=== PATIENT | female | born 1945 | race Caucasian/White ===

== ENCOUNTER 2024-03-12 15:42 | Inpatient (IN) ==
[2024-03-12 16:32] LABS: Basophils # (auto) 0.07 K/uL (0.00-0.20); Basophils % (auto) 0.5 %; Eosinophils # (auto) 0.06 K/uL (0.00-0.50); Eosinophils % (auto) 0.4 %; Hematocrit (blood only) 40.2 % (37.0-47.0); Hemoglobin 12.7 g/dl (12.0-16.0); Immature Granulocytes % (auto) 0.7 %; Lymphocytes # (auto) 1.42 K/uL (1.20-3.40); Lymphocytes % (auto) 10.3 %; Mean Corpuscular Hemoglobin 27.3 pg (25.0-34.0); Mean Corpuscular Hgb Conc 31.6 g/dL (32.0-36.0); Mean Corpuscular Volume 86.5 fL (80.0-100.0); Mean Platelet Volume 12.2 fL (9.4-12.4); Monocytes # (auto) 0.85 K/uL (0.11-0.59); Monocytes % (auto) 6.2 %; Neutrophils % (auto) 81.9 %; Platelet Count 186 K/uL (130-400); RDW Coefficient of Variation 15.4 % (11.5-14.5); RDW Standard Deviation 48.8 fL (36.4-46.3); Red Blood Count 4.65 M/uL (4.20-5.40)
[2024-03-12 16:41] LABS: Albumin Globulin Ratio 1.4 (0.9-2); Albumin Level 4.5 gm/dl (3.4-5.0); BUN Creatinine Ratio 13.6 (10-20); Bilirubin,Total 1.1 mg/dl (0.2-1.0); Calcium 9.9 mg/dl (8.6-10.3); Creatinine Clr Calc Pharmacy 55.6 ml/min; Globulin 3.3 gm/dl (2.5-4.0); Magnesium 1.9 mg/dl (1.7-2.4); Potassium 3.9 mmol/L (3.5-5.1); Total Protein 7.8 gm/dl (6.0-8.3)
[2024-03-12 16:48] LABS: Troponin I High Sensitivity 36.5 pg/ml (0-14)
--- NOTE | 2024-03-12 17:00 | XRay Report ---
Clinical History: Dyspnea Technique: A frontal view of the chest was obtained Findings: There are no definite pulmonary infiltrates. The heart size is at the upper limit of normal. No pleural effusion or pneumothorax is seen. There is suspected mild pulmonary vascular congestion No fracture is noted. No foreign body is seen Impression: Borderline cardiomegaly and mild pulmonary vascular congestion Electronically signed by Marques Roberto 03-12-2024 4:59 PM
[2024-03-12] MEDS: OPTIRAY 320 125ml IV ONE (17:27)
[2024-03-12 17:34] LABS: Adenovirus PCR Not Detected (NotDetected); Bordetella parapertussis PCR Not Detected (NotDetected); Bordetella pertussis PCR Not Detected (NotDetected); Chlamydia pneumoniae PCR Not Detected (NotDetected); Coronavirus 229E PCR Not Detected (NotDetected); Coronavirus CoV-2 (COVID19)PCR Not Detected (NotDetected); Coronavirus HKU1 PCR Not Detected (NotDetected); Coronavirus NL63 PCR Not Detected (NotDetected); Coronavirus OC43PCR Not Detected (NotDetected); Human Metapneumovirus PCR Not Detected (NotDetected); Influenza A PCR Not Detected (NotDetected); Influenza B PCR Not Detected (NotDetected); Mycoplasma pneumoniae PCR Not Detected (NotDetected); Parainfluenza Virus 1 PCR Not Detected (NotDetected); Parainfluenza Virus 2 PCR Not Detected (NotDetected); Parainfluenza Virus 3 PCR Not Detected (NotDetected); Parainfluenza Virus 4 PCR Not Detected (NotDetected); Respiratory Syncytial VirusPCR Not Detected (NotDetected); Rhinovirus/Enterovirus PCR Not Detected (NotDetected)
--- NOTE | 2024-03-12 18:18 | CT Scan Report ---
Technique: Axial computed tomography images were obtained of the chest after the administration of intravenous contrast according to the CT angiogram protocol Findings: There is no definite sign of pulmonary embolism. There is mild pulmonary edema. There is a small area of alveolar opacity, likely due to atelectasis. There are small bilateral pleural effusions. There is no pneumothorax. There is no sign of pulmonary fibrosis or other diffuse interstitial process. No endobronchial lesion is seen There are mildly enlarged mediastinal and right hilar lymph nodes, measuring up to 1.5 cm in short axis. The thoracic aorta appears unremarkable with no sign of aneurysm or dissection. There is no pericardial effusion The visualized upper abdomen appears unremarkable. No fracture is seen. No focal osseous lesion is evident Impression: 1. No definite sign of pulmonary embolism 2. Mild pulmonary edema 3. Small bilateral pleural effusions 4. Mild lingular opacity, likely due to atelectasis. A small focus of pneumonia cannot be excluded 5. Mild mediastinal and right hilar adenopathy, nonspecific in nature Electronically signed by Marques Roberto 03-12-2024 6:18 PM
[2024-03-12] MEDS: CEFEPIME 2000MG 2,000 MG/20 ML SYR IV STA (18:43)
[2024-03-12 18:56] LABS: Appearance Urine Clear (Clear); Bilirubin Urine Negative (Negative); Blood Urine Negative (Negative); Color Urine Yellow; Glucose Urine UA Negative (Negative); Ketones Urine Negative (Negative); Leukocyte Esterase Urine Negative (Negative); Nitrite Urine Negative (Negative); Protein Urine Negative (Negative); Specific Gravity Urine 1.028 (1.000-1.030); Urobilinogen Urine Negative (Negative); pH Urine 5.5 (4.5-7.5)
[2024-03-12] MEDS: DOXYCYCLINE HYCLATE 100 MG in DEXTROSE 5% MINI-B 100 ML IV STA (19:27)
--- NOTE | 2024-03-12 19:37 | History & Physical Report ---
Date of Service March 12, 2024 Assessment & Plan (1) Congestive heart failure: Plan: Acute CHF Prominent systolic murmur Recent respiratory infection/community-acquired pneumonia status post Rx Troponin elevation segment illness bronchial asthma, symptoms well-controlled prior to recent respiratory infection hyperlipidemia, on statin Rx prediabetes PCU Diuretic Rx Strict I/Os, daily weights, CHF education Initiate beta-anson TTE, Cardiology consult re: CHF Hold off on additional antibiotic medications. Check hemoglobin A1c DVT prophylaxis per Lovenox subcu Full code Patient daughter requesting updates providers. Ms. Danni Kruse, contact #[phone]. Text document was generated using [employer] voice recognition software. It may contain grammatical or spelling errors. Kindly contact undersigned for clarification of any documentation item in question. History of Present Illness Chief Complaint: Worsening shortness of breath Primary Care Provider: Dr. Jaye Noe from [facility] History obtained from patient, family, and records. Medical history significant for heart murmur, bronchial asthma, hyperlipidemia, prediabetes, gout. Patient is a resident of [facility] who has been in town the last couple of weeks with her to spend holidays with local family. Patient and were to return home 03/16/2024. Patient and her got a cold 2 weeks ago before leaving [place] for the [facility]. Congestion with dry cough symptoms. No chest pain with some SOB. Denies fluid retention. Denies aspiration. Patient consulted local urgent care center 2 weeks ago. Patient prescribed prednisone, Z-Christiano, and inhaler for respiratory illness. No outpatient blood work and x-rays done. Transient improvement in symptoms. Worsening SOB especially on exertion. Denies chest pain. Patient reconsulted urgent care center today. SBP 170s, pulse rate 120s, RR 18, O2 sats 97 room air. Left lobe infiltrate and cardiomegaly on chest x-ray. Neb treatment administered at facility. Cefepime and doxycycline administered at the ER. Patient directed to ER for evaluation. 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 Allergies Allergy/AdvReac Type Severity Reaction Status Date / Time Penicillins Allergy Unknown Verified 03/12/24 16:40 narcotics AdvReac Unknown Uncoded 03/12/24 16:40 Home Medications Medication Instructions Recorded Confirmed Type allopurinol 100 mg tablet 100 mg PO QAM 03/12/24 03/12/24 History cholecalciferol (vitamin D3) 10 10 mcg PO DAILY 03/12/24 03/12/24 History mcg (400 unit) tablet (Vitamin D3) omega 3 350 mg-dha 235 mg-epa 90 1 cap PO DAILY 03/12/24 03/12/24 History mg-fish oil 597 mg capsule,delay rel ([place]-3) rosuvastatin 5 mg tablet 5 mg PO HS 03/12/24 03/12/24 History Past Med/Surg History Problem List (Updated 03/13/24 @ 09:50 by Sajan Moncada DO) Severe mitral regurgitation Acute heart failure with preserved ejection fraction Elevated troponin (Acute) Congestive heart failure (Acute) Community acquired pneumonia (Acute) Social History Smoking Status: Never smoker Hx Alcohol Use: No Hx Substance Use: No Preferred Language: [place] Communication Ability: Effective [employer] Former Required: No Beliefs That Will Affect Care: None Current Living Situation: Spouse and Family Other Information That Helps Us Care for You: No Feels Safe at Home: Yes Safety Concerns: Feels Safe At This Time Assistive Devices: Glasses Review of Systems Review of Systems: As per HPI, all other systems reviewed and negative Physical Exam Physical Exam: GENERAL: Slightly anxious, episodic tachypnea during encounter SKIN: Normal color, warm HEENT: [place] palpebral conjunctivae, no ptosis, dry buccal mucosa NECK : Supple, no tenderness CHEST : Decreased breath sounds, no tenderness HEART : Tachycardic, systolic murmur ABDOMEN: Some distention, nontender EXTREMITIES : Minimal LE swelling without tenderness, no other conspicuous deformities noted NEUROLOGIC : Coherent, no facial asymmetry, no other gross focality Results & Data Results & Data Vital Signs (Past 12 Hours) Vital Signs Temp Pulse Pulse Resp BP BP Pulse Ox 03/12/24 18:00 110 H 18 136/78 96 03/12/24 16:19 124 H 03/12/24 16:11 121 H 24 94 03/12/24 16:11 90 03/12/24 15:49 36.7 C 129 H 23 172/99 H 92 O2 Del Method O2 Flow Rate 03/12/24 18:00 Room Air 03/12/24 16:19 03/12/24 16:11 Nasal Cannula 2 03/12/24 16:11 Room Air 03/12/24 15:49 Room Air Laboratory Results Laboratory Results WBC 13.80 K/ul (4.8-10.8) H 03/12/24 16:07 RBC 4.65 M/uL (4.20-5.40) 03/12/24 16:07 Hgb 12.7 g/dl (12.0-16.0) 03/12/24 16:07 Hct 40.2 % (37.0-47.0) 03/12/24 16:07 MCV 86.5 fL (80.0-100.0) 03/12/24 16:07 MCH 27.3 pg (25.0-34.0) 03/12/24 16:07 MCHC 31.6 g/dL (32.0-36.0) L 03/12/24 16:07 RDW Std Deviation 48.8 fL (36.4-46.3) H 03/12/24 16:07 RDW Coeff of Shweta 15.4 % (11.5-14.5) H 03/12/24 16:07 Plt Count 186 K/uL (130-400) 03/12/24 16:07 MPV 12.2 fL (9.4-12.4) 03/12/24 16:07 Immature Gran % (Auto) 0.7 % 03/12/24 16:07 Neut % (Auto) 81.9 % 03/12/24 16:07 Lymph % (Auto) 10.3 % 03/12/24 16:07 Cobb % (Auto) 6.2 % 03/12/24 16:07 Eos % (Auto) 0.4 % 03/12/24 16:07 Baso % (Auto) 0.5 % 03/12/24 16:07 Neut # (Auto) 11.30 K/uL (1.40-6.50) H 03/12/24 16:07 Lymph # (Auto) 1.42 K/uL (1.20-3.40) 03/12/24 16:07 Cobb # (Auto) 0.85 K/uL (0.11-0.59) H 03/12/24 16:07 Eos # (Auto) 0.06 K/uL (0.00-0.50) 03/12/24 16:07 Baso # (Auto) 0.07 K/uL (0.00-0.20) 03/12/24 16:07 Immature Gran # (Auto) 0.10 K/uL (0.01-0.20) 03/12/24 16:07 Sodium 141 mmol/L (136-145) 03/12/24 16:07 Potassium 3.9 mmol/L (3.5-5.1) 03/12/24 16:07 Chloride 108 mmol/L (98-107) H 03/12/24 16:07 Carbon Dioxide 22 mmol/L (21-32) 03/12/24 16:07 Anion Gap 11 (3-11) 03/12/24 16:07 BUN 12 mg/dl (6-23) 03/12/24 16:07 Creatinine 0.88 mg/dl (0.6-1.2) 03/12/24 16:07 Est Cr Clr Drug Dosing 55.6 ml/min 03/12/24 16:07 eGFR 67.64 03/12/24 16:07 BUN/Creatinine Ratio 13.6 (10-20) 03/12/24 16:07 Glucose 136 mg/dl (70-99(Fasting)) H 03/12/24 16:07 Calcium 9.9 mg/dl (8.6-10.3) 03/12/24 16:07 Magnesium 1.9 mg/dl (1.7-2.4) 03/12/24 16:07 Total Bilirubin 1.1 mg/dl (0.2-1.0) H 03/12/24 16:07 AST 34 U/L (13-39) 03/12/24 16:07 ALT 69 U/L (7-52) H 03/12/24 16:07 Alkaline Phosphatase 172 U/L (34-104) H 03/12/24 16:07 Troponin I High Sens 68.0 pg/ml (0-14) H* D 03/12/24 18:27 B-Natriuretic Peptide 390 pg/ml (0-100) H 03/12/24 16:07 Total Protein 7.8 gm/dl (6.0-8.3) 03/12/24 16:07 Albumin 4.5 gm/dl (3.4-5.0) 03/12/24 16:07 Globulin 3.3 gm/dl (2.5-4.0) 03/12/24 16:07 Albumin/Globulin Ratio 1.4 (0.9-2) 03/12/24 16:07 Urine Color Yellow 03/12/24 18:41 Urine Appearance Clear (Clear) 03/12/24 18:41 Urine pH 5.5 (4.5-7.5) 03/12/24 18:41 Ur Specific [place] 1.028 (1.000-1.030) 03/12/24 18:41 Urine Protein Negative (Negative) 03/12/24 18:41 Urine Glucose (UA) Negative (Negative) 03/12/24 18:41 Urine Ketones Negative (Negative) 03/12/24 18:41 Urine Blood Negative (Negative) 03/12/24 18:41 Urine Nitrite Negative (Negative) 03/12/24 18:41 Urine Bilirubin Negative (Negative) 03/12/24 18:41 Urine Urobilinogen Negative (Negative) 03/12/24 18:41 Ur Leukocyte Esterase Negative (Negative) 03/12/24 18:41 Adenovirus (PCR) Not Detected (NotDetected) 03/12/24 16:30 B. pertussis DNA (PCR) Not Detected (NotDetected) 03/12/24 16:30 B.parapertussis DNA PCR Not Detected (NotDetected) 03/12/24 16:30 C. pneumoniae DNA (PCR) Not Detected (NotDetected) 03/12/24 16:30 Coronavirus OC43 (PCR) Not Detected (NotDetected) 03/12/24 16:30 Coronavirus HKU1 (PCR) Not Detected (NotDetected) 03/12/24 16:30 Coronavirus 229E (PCR) Not Detected (NotDetected) 03/12/24 16:30 SARS-CoV-2 (PCR) Not Detected (NotDetected) 03/12/24 16:30 Coronavirus NL63 (PCR) Not Detected (NotDetected) 03/12/24 16:30 Human Metapneumovir PCR Not Detected (NotDetected) 03/12/24 16:30 Influenza Type A (PCR) Not Detected (NotDetected) 03/12/24 16:30 Influenza Type B (PCR) Not Detected (NotDetected) 03/12/24 16:30 M. pneumoniae (PCR) Not Detected (NotDetected) 03/12/24 16:30 Parainfluenza 1 (PCR) Not Detected (NotDetected) 03/12/24 16:30 Parainfluenza 2 (PCR) Not Detected (NotDetected) 03/12/24 16:30 Parainfluenza 3 (PCR) Not Detected (NotDetected) 03/12/24 16:30 Parainfluenza 4 (PCR) Not Detected (NotDetected) 03/12/24 16:30 RSV (PCR) Not Detected (NotDetected) 03/12/24 16:30 Entero/Rhino (PCR) Not Detected (NotDetected) 03/12/24 16:30 Impressions Chest X-Ray 03/12/24 16:01 Clinical History: Dyspnea Technique: A frontal view of the chest was obtained Findings: There are no definite pulmonary infiltrates. The heart size is at the upper limit of normal. No pleural effusion or pneumothorax is seen. There is suspected mild pulmonary vascular congestion No fracture is noted. No foreign body is seen Impression: Borderline cardiomegaly and mild pulmonary vascular congestion Electronically signed by Marques Roberto 03-12-2024 4:59 PM Chest CTA 03/12/24 17:04 Technique: Axial computed tomography images were obtained of the chest after the administration of intravenous contrast according to the CT angiogram protocol Findings: There is no definite sign of pulmonary embolism. There is mild pulmonary edema. There is a small area of alveolar opacity, likely due to atelectasis. There are small bilateral pleural effusions. There is no pneumothorax. There is no sign of pulmonary fibrosis or other diffuse interstitial process. No endobronchial lesion is seen There are mildly enlarged mediastinal and right hilar lymph nodes, measuring up to 1.5 cm in short axis. The thoracic aorta appears unremarkable with no sign of aneurysm or dissection. There is no pericardial effusion The visualized upper abdomen appears unremarkable. No fracture is seen. No focal osseous lesion is evident Impression: 1. No definite sign of pulmonary embolism 2. Mild pulmonary edema 3. Small bilateral pleural effusions 4. Mild lingular opacity, likely due to atelectasis. A small focus of pneumonia cannot be excluded 5. Mild mediastinal and right hilar adenopathy, nonspecific in nature Electronically signed by Marques Roberto 03-12-2024 6:18 PM Diagnostic Findings EKG as per my interpretation :Rate 95, NSR, normal axis, no ischemia
[2024-03-12 20:18] LABS: Partial Thromboplastin Time 27 Seconds (21-31)
[2024-03-12] MEDS ORDERED: hydrOXYzine HCl 10 MG TAB PO PRN (20:47)
[2024-03-12] MEDS ORDERED: PROMETHAZINE 6.25 MG/50.25 ML BAG IV PRN (20:47)
[2024-03-12] MEDS: POTASSIUM CHLORIDE CRTAB 20 MEQ TABCR PO STA (21:30)
[2024-03-12] MEDS: FUROSEMIDE INJ 20 MG/2 ML VIAL IV ONE (21:30)
[2024-03-12 21:34] LABS: Thyroid Stimulating Hormone 2.478 uIu/ml (0.300-4.500)
[2024-03-12] MEDS: MAGNESIUM SULFATE / D5W 1 GM/100 ML BAG IV ONE (21:44)
[2024-03-12] MEDS: LEVALBUTEROL 1.25 MG/3 ML NEB NEB STA (21:45)
[2024-03-12] MEDS: IPRATROPIUM BROMIDE NEB SOLN 0.02% 0.5MG/2.5ML VIAL INH STA (21:45)
[2024-03-12] MEDS: ACETAMINOPHEN 325 MG TAB PO STA (21:45)
[2024-03-12] MEDS: guaiFENesin 600 MG TABCR PO SCH (22:12)
[2024-03-12] MEDS: METOPROLOL TARTRATE 25 MG TAB PO STA (22:13)
[2024-03-12] MEDS: ROSUVASTATIN CALCIUM 5 MG TAB PO SCH (22:29)
--- NOTE | 2024-03-13 00:13 | Emergency Department Note ---
Impression & Plan Community acquired pneumonia, Congestive heart failure, Elevated troponin ED Provider Note NAME: JUAN MOORE AGE: 79 SEX: Female INFORMANT: Patient ED PROVIDER(S): Domenico Roberson MD CHIEF COMPLAINT: Shortness of breath PLAN: Disposition: Admitted Outpatient prescription management: none Referral: None MEDICAL DECISION MAKING: Patient presented because of shortness of breath. Workup initiated. She was requiring supplemental oxygen to maintain her saturations in the 90s. Patient did feel better with nasal cannula oxygen. Her twelve-lead ECG did reveal tachycardia nonspecific ST changes. No acute ST elevation noted. The patient had some mild pulmonary vascular congestion on chest x-ray. No significant infiltrate was appreciated. She did have a mild leukocytosis. Patient also had an elevated BNP and troponin concerning for cardiac etiology such as CHF/ACS/myocarditis. Patient denies any chest pain. Given the findings and her travel history patient was felt to need CT PE study to rule out pulmonary embolism. CT PE study was performed. Pneumonia was seen but no evidence of pulmonary emboli. Pulmonary edema was also appreciated. Patient did had cultures and was treated with IV cefepime and doxycycline. Discussed the findings with the patient and family. Patient will need further workup and management in the hospital as she has no cardiac history. Patient and family were in agreement. Consultation was made with Dr. Dakotah Kim, [facility] hospitalist service. Patient was evaluated in the ER and admitted for further management. 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 Vital Signs: reviewed and remarkable for no significant abnormalities Additional History obtained from: none Chronic Medical/Social Conditions affecting care: none Prior/ Outside/ External records reviewed: none Differential Diagnosis: Reactive airway disease, pneumonia, pneumothorax, COPD, CHF, infections, cardiac ischemia, pulmonary embolism, musculoskeletal, gastrointestinal, as well as other pathologies. Diagnostics, independently interpreted by me: ECG: Twelve-lead ECG was sinus tachycardia at [address] No ST elevation. No prior for comparison. Cardiac Monitoring: Cardiac monitoring ordered by me: The patient was placed on continuous cardiac monitoring and observed. It revealed a sinus tachycardic rhythm at 109 beats per minute without ectopy or evidence of dysrhythmia. Medical decision rules: none Imaging studies: Chest x-ray and CT scan as above. Pneumonia. No definitive PE. HPI: 79 year old Female arrives for evaluation of shortness of breath. This started about 2 weeks ago and is worsening. Patient was seen at urgent care and was started on steroids and antibiotic. She felt a little bit better but then got worse. She went to urgent care and her O2 saturations were noted to be low. There was concerns for pneumonia and patient was sent to the ER. Patient [place] She denies any cardiac or pulmonary history. The patient also notes the following associated symptoms, dyspnea on exertion, fatigue. Current pain is rated as 0/10. Pt denies LOC, headache, neck pain, chest pain, leg swelling, calf pain, nausea, vomiting, abdominal pain, back pain, melena, hematochezia, urinary symptoms, numbness, weakness, lymphadenopathy, rash, or other complaints.. PAST MEDICAL HISTORY: See Below, high cholesterol PAST SURGICAL HISTORY: See Below, SOCIAL HISTORY: See Below, HOME MEDICATIONS: See Below ALLERGIES: See Below VITALS: See Below PHYSICAL EXAMINATION: GENERAL: Awake, alert, mildly dyspneic-appearing, in no distress HENT: Normocephalic, atraumatic. Oropharynx unremarkable. EYES: Normal conjunctiva. Sclera non-icteric. NECK: Inspection normal. Non-tender. Supple. No nuchal rigidity. FROM. No masses. RESPIRATORY: Scattered rhonchi. No wheezes. No rales. Mildly increased respiratory effort. CARDIAC: Tachycardic rate. Normal rhythm. No murmurs. No rubs. Extremities warm and well perfused. Pulses equal. No JVD. GI: Soft, non-distended. No tenderness to palpation. No rebound or guarding. No masses. RECTAL: Deferred. MUSCULOSKELETAL: Atraumatic. Chest examination reveals no tenderness. The back is symmetrical on inspection without obvious abnormality. There is no CVA tenderness to palpation. No joint edema. LOWER EXTREMITIES: Calves are equal size bilaterally and non-tender. Trace edema. Chronic venous discoloration. Negative Homans' sign. NEURO: Normal sensorium. No sensory or motor deficits noted. SKIN: No rash or jaundice noted. PROCEDURES: none CRITICAL CARE: I have personally spent 30 minutes of critical care time in the direct management of this patient. This includes bedside care, interpretation of diagnostic studies, and testing, discussion with consultants, patient, and family members, and other required patient management activities. These minutes are in excess of all separately billable procedures. OBSERVATION NOTE: none Past Med/Surg History Problem List (Updated 03/13/24 @ 00:13 by Domenico Roberson MD) Elevated troponin (Acute) Congestive heart failure (Acute) Community acquired pneumonia (Acute) Social History Smoking Status: Never smoker Hx Alcohol Use: No Hx Substance Use: No Preferred Language: Ken[place] Communication Ability: Effective Environmental Technician Required: No Beliefs That Will Affect Care: None Current Living Situation: Spouse and Family Other Information That Helps Us Care for You: No Feels Safe at Home: Yes Safety Concerns: Feels Safe At This Time Assistive Devices: Glasses Allergies Allergies Allergy/AdvReac Type Severity Reaction Status Date / Time Penicillins Allergy Unknown Verified 03/12/24 16:40 narcotics AdvReac Unknown Uncoded 03/12/24 16:40 Home Meds Home Medications Medication Instructions Recorded Confirmed allopurinol 100 mg tablet 100 mg PO QAM 03/12/24 03/12/24 cholecalciferol (vitamin D3) 10 10 mcg PO DAILY 03/12/24 03/12/24 mcg (400 unit) tablet (Vitamin D3) omega 3 350 mg-dha 235 mg-epa 90 1 cap PO DAILY 03/12/24 03/12/24 mg-fish oil 597 mg capsule,delay rel ([place]-3) rosuvastatin 5 mg tablet 5 mg PO HS 03/12/24 03/12/24 Results & Data (ED) Vital Signs Vital Signs - 24 hr 03/12/24 15:49 03/12/24 16:11 03/12/24 16:11 Temperature 36.7 C Temperature Source Temporal Artery Scan Pulse Rate 129 H 121 H Pulse Rate [Apical] Pulse Rate from SpO2 Sensor Pulse Rhythm Regular Respiratory Rate 23 24 Respiratory Effort / Characteristics Non-Labored Spontaneous Respiratory Depth Normal Blood Pressure 172/99 H Blood Pressure [Right Arm] Blood Pressure Mean 123 Blood Pressure Mean [Right Arm] Blood Pressure Position Sitting Pulse Oximetry 92 90 94 Oxygen Delivery Method Room Air Room Air Nasal Cannula Oxygen Flow Rate 2 Sepsis Recent Fever Within 48 Hours No Sepsis New/Unexplained Change in Mental Status No Sepsis Action Taken by Nursing Physician Notified Fraction of Inspired Oxygen - Titration 2 Pulse Oximetry Post Tiitration 94 03/12/24 16:19 03/12/24 18:00 03/12/24 18:33 Temperature Temperature Source Pulse Rate 124 H 111 H Pulse Rate [Apical] 110 H Pulse Rate from SpO2 Sensor 111 H Pulse Rhythm Respiratory Rate 18 28 H Respiratory Effort / Characteristics Respiratory Depth Blood Pressure 143/93 H Blood Pressure [Right Arm] 136/78 Blood Pressure Mean 109 Blood Pressure Mean [Right Arm] 97 Blood Pressure Position Pulse Oximetry 96 96 Oxygen Delivery Method Room Air Oxygen Flow Rate Sepsis Recent Fever Within 48 Hours Sepsis New/Unexplained Change in Mental Status Sepsis Action Taken by Nursing Fraction of Inspired Oxygen - Titration Pulse Oximetry Post Tiitration 03/12/24 19:27 03/12/24 19:30 03/12/24 19:30 Temperature Temperature Source Pulse Rate 107 H Pulse Rate [Apical] Pulse Rate from SpO2 Sensor 105 H Pulse Rhythm Respiratory Rate 20 Respiratory Effort / Characteristics Respiratory Depth Blood Pressure 142/92 H 142/92 H 142/92 H Blood Pressure [Right Arm] Blood Pressure Mean 108 110 110 Blood Pressure Mean [Right Arm] Blood Pressure Position Pulse Oximetry 95 Oxygen Delivery Method Oxygen Flow Rate Sepsis Recent Fever Within 48 Hours Sepsis New/Unexplained Change in Mental Status Sepsis Action Taken by Nursing Fraction of Inspired Oxygen - Titration Pulse Oximetry Post Tiitration 03/12/24 19:36 Temperature Temperature Source Pulse Rate 105 H Pulse Rate [Apical] Pulse Rate from SpO2 Sensor 100 H Pulse Rhythm Respiratory Rate 23 Respiratory Effort / Characteristics Respiratory Depth Blood Pressure Blood Pressure [Right Arm] Blood Pressure Mean Blood Pressure Mean [Right Arm] Blood Pressure Position Pulse Oximetry 95 Oxygen Delivery Method Oxygen Flow Rate Sepsis Recent Fever Within 48 Hours Sepsis New/Unexplained Change in Mental Status Sepsis Action Taken by Nursing Fraction of Inspired Oxygen - Titration Pulse Oximetry Post Tiitration Laboratory Data 03/12/24 16:07 03/12/24 16:07 Lab Results 03/12/24 03/12/24 03/12/24 Range/Units 16:07 16:30 18:27 WBC 13.80 H (4.8-10.8) K/ul RBC 4.65 (4.20-5.40) M/uL Hgb 12.7 (12.0-16.0) g/dl Hct 40.2 (37.0-47.0) % MCV 86.5 (80.0-100.0) fL MCH 27.3 (25.0-34.0) pg MCHC 31.6 L (32.0-36.0) g/dL RDW Std Deviation 48.8 H (36.4-46.3) fL RDW Coeff of Shw[place] 15.4 H (11.5-14.5) % Plt Count 186 (130-400) K/uL MPV 12.2 (9.4-12.4) fL Immature Gran % (Auto) 0.7 % Neut % (Auto) 81.9 % Lymph % (Auto) 10.3 % Clay % (Auto) 6.2 % Eos % (Auto) 0.4 % Baso % (Auto) 0.5 % Neut # (Auto) 11.30 H (1.40-6.50) K/uL Lymph # (Auto) 1.42 (1.20-3.40) K/uL Clay # (Auto) 0.85 H (0.11-0.59) K/uL Eos # (Auto) 0.06 (0.00-0.50) K/uL Baso # (Auto) 0.07 (0.00-0.20) K/uL Immature Gran # (Auto) 0.10 (0.01-0.20) K/uL APTT 27 (21-31) Seconds PTT Ratio 1.0 Sodium 141 (136-145) mmol/L Potassium 3.9 (3.5-5.1) mmol/L Chloride 108 H (98-107) mmol/L Carbon Dioxide 22 (21-32) mmol/L Anion Gap 11 (3-11) BUN 12 (6-23) mg/dl Creatinine 0.88 (0.6-1.2) mg/dl Est Cr Clr Drug Dosing 55.6 ml/min eGFR 67.64 BUN/Creatinine Ratio 13.6 (10-20) Glucose 136 H (70-99(Fasting)) mg/dl Calcium 9.9 (8.6-10.3) mg/dl Magnesium 1.9 (1.7-2.4) mg/dl Total Bilirubin 1.1 H (0.2-1.0) mg/dl AST 34 (13-39) U/L ALT 69 H (7-52) U/L Alkaline Phosphatase 172 H (34-104) U/L Troponin I High Sens 36.5 H 68.0 H* D (0-14) pg/ml B-Natriuretic Peptide 390 H (0-100) pg/ml Total Protein 7.8 (6.0-8.3) gm/dl Albumin 4.5 (3.4-5.0) gm/dl Globulin 3.3 (2.5-4.0) gm/dl Albumin/Globulin Ratio 1.4 (0.9-2) Procalcitonin 0.04 (0-0.5) ng/ml TSH 2.478 (0.300-4.500) uIu/ml Urine Color Urine Appearance (Clear) Urine pH (4.5-7.5) Ur Specific [place] (1.000-1.030) Urine Protein (Negative) Urine Glucose (UA) (Negative) Urine Ketones (Negative) Urine Blood (Negative) Urine Nitrite (Negative) Urine Bilirubin (Negative) Urine Urobilinogen (Negative) Ur Leukocyte Esterase (Negative) Adenovirus (PCR) Not Detected (NotDetected) B. pertussis DNA (PCR) Not Detected (NotDetected) B.parapertussis DNA PCR Not Detected (NotDetected) C. pneumoniae DNA (PCR) Not Detected (NotDetected) Coronavirus OC43 (PCR) Not Detected (NotDetected) Coronavirus HKU1 (PCR) Not Detected (NotDetected) Coronavirus 229E (PCR) Not Detected (NotDetected) SARS-CoV-2 (PCR) Not Detected (NotDetected) Coronavirus NL63 (PCR) Not Detected (NotDetected) Human Metapneumovir PCR Not Detected (NotDetected) Influenza Type A (PCR) Not Detected (NotDetected) Influenza Type B (PCR) Not Detected (NotDetected) M. pneumoniae (PCR) Not Detected (NotDetected) Parainfluenza 1 (PCR) Not Detected (NotDetected) Parainfluenza 2 (PCR) Not Detected (NotDetected) Parainfluenza 3 (PCR) Not Detected (NotDetected) Parainfluenza 4 (PCR) Not Detected (NotDetected) RSV (PCR) Not Detected (NotDetected) Entero/Rhino (PCR) Not Detected (NotDetected) 03/12/24 Range/Units 18:41 WBC (4.8-10.8) K/ul RBC (4.20-5.40) M/uL Hgb (12.0-16.0) g/dl Hct (37.0-47.0) % MCV (80.0-100.0) fL MCH (25.0-34.0) pg MCHC (32.0-36.0) g/dL RDW Std Deviation (36.4-46.3) fL RDW Coeff of Shweta (11.5-14.5) % Plt Count (130-400) K/uL MPV (9.4-12.4) fL Immature Gran % (Auto) % Neut % (Auto) % Lymph % (Auto) % Clay % (Auto) % Eos % (Auto) % Baso % (Auto) % Neut # (Auto) (1.40-6.50) K/uL Lymph # (Auto) (1.20-3.40) K/uL Clay # (Auto) (0.11-0.59) K/uL Eos # (Auto) (0.00-0.50) K/uL Baso # (Auto) (0.00-0.20) K/uL Immature Gran # (Auto) (0.01-0.20) K/uL APTT (21-31) Seconds PTT Ratio Sodium (136-145) mmol/L Potassium (3.5-5.1) mmol/L Chloride (98-107) mmol/L Carbon Dioxide (21-32) mmol/L Anion Gap (3-11) BUN (6-23) mg/dl Creatinine (0.6-1.2) mg/dl Est Cr Clr Drug Dosing ml/min eGFR BUN/Creatinine Ratio (10-20) Glucose (70-99(Fasting)) mg/dl Calcium (8.6-10.3) mg/dl Magnesium (1.7-2.4) mg/dl Total Bilirubin (0.2-1.0) mg/dl AST (13-39) U/L ALT (7-52) U/L Alkaline Phosphatase (34-104) U/L Troponin I High Sens (0-14) pg/ml B-Natriuretic Peptide (0-100) pg/ml Total Protein (6.0-8.3) gm/dl Albumin (3.4-5.0) gm/dl Globulin (2.5-4.0) gm/dl Albumin/Globulin Ratio (0.9-2) Procalcitonin (0-0.5) ng/ml TSH (0.300-4.500) uIu/ml Urine Color Yellow Urine Appearance Clear (Clear) Urine pH 5.5 (4.5-7.5) Ur Specific [place] 1.028 (1.000-1.030) Urine Protein Negative (Negative) Urine Glucose (UA) Negative (Negative) Urine Ketones Negative (Negative) Urine Blood Negative (Negative) Urine Nitrite Negative (Negative) Urine Bilirubin Negative (Negative) Urine Urobilinogen Negative (Negative) Ur Leukocyte Esterase Negative (Negative) Adenovirus (PCR) (NotDetected) B. pertussis DNA (PCR) (NotDetected) B.parapertussis DNA PCR (NotDetected) C. pneumoniae DNA (PCR) (NotDetected) Coronavirus OC43 (PCR) (NotDetected) Coronavirus HKU1 (PCR) (NotDetected) Coronavirus 229E (PCR) (NotDetected) SARS-CoV-2 (PCR) (NotDetected) Coronavirus NL63 (PCR) (NotDetected) Human Metapneumovir PCR (NotDetected) Influenza Type A (PCR) (NotDetected) Influenza Type B (PCR) (NotDetected) M. pneumoniae (PCR) (NotDetected) Parainfluenza 1 (PCR) (NotDetected) Parainfluenza 2 (PCR) (NotDetected) Parainfluenza 3 (PCR) (NotDetected) Parainfluenza 4 (PCR) (NotDetected) RSV (PCR) (NotDetected) Entero/Rhino (PCR) (NotDetected) Administered Medications Guaifenesin (Guaifenesin 600 Mg Tabcr) 600 mg PO Q12 LEROY Stop: 04/11/24 21:59 Last Admin: 03/12/24 22:12 Dose: 600 mg Documented By: NRB Rosuvastatin Calcium (Rosuvastatin Calcium 5 Mg Tab) 5 mg PO HS LEROY Stop: 04/11/24 21:59 Last Admin: 03/12/24 22:29 Dose: 5 mg Documented By: NRB Discontinued Medications Acetaminophen (Acetaminophen 325 Mg Tab) 650 mg PO NOW STA Stop: 03/12/24 21:30 Last Admin: 03/12/24 21:45 Dose: 650 mg Documented By: URBANO Furosemide (Furosemide Inj 20 Mg/2 Ml Vial) 20 mg IV ONE ONE Stop: 03/12/24 19:35 Last Admin: 03/12/24 21:30 Dose: 20 mg Documented By: NRElliot Cefepime HCl (Maxipime 2000mg) 2,000 mg in 20 mls @ 5 mls/min IV NOW STA; Protocol Stop: 03/12/24 18:26 Last Admin: 03/12/24 18:43 Dose: 5 mls/min Documented By: ML Doxycycline Hyclate 100 mg/ (Dextrose) 100 mls @ 50 mls/hr IV NOW STA Stop: 03/12/24 20:22 Last Infusion: 03/12/24 21:51 Dose: Infused Documented By: Admin: 03/12/24 19:27 Dose: 50 mls/hr Documented By: URBANO Magnesium Sulfate/Dextrose (Magnesium Sulfate / D5w) 1 gm in 100 mls @ 50 mls/hr IV ONE ONE Stop: 03/12/24 21:31 Last Infusion: 03/12/24 23:43 Dose: Infused Documented By: Admin: 03/12/24 21:44 Dose: 50 mls/hr Documented By: URBANO Ioversol (Optiray 320 125ml) 117 ml IV ONCE ONE Stop: 03/12/24 17:26 Last Admin: 03/12/24 17:27 Dose: 117 ml Documented By: [place] Ipratropium [place] (Ipratropium [place] Neb Soln 0.02% 0.5mg/2.5ml Vial) 0.5 mg INH NOW STA Stop: 03/12/24 20:46 Last Admin: 03/12/24 21:45 Dose: 0.5 mg Documented By: URBANO Levalbuterol HCl (Levalbuterol 1.25 Mg/3 Ml Neb) 1.25 mg NEB NOW STA Stop: 03/12/24 20:46 Last Admin: 03/12/24 21:45 Dose: 1.25 mg Documented By: URBANO Metoprolol Tartrate (Metoprolol Tartrate 25 Mg Tab) 12.5 mg PO NOW STA Stop: 03/12/24 20:45 Last Admin: 03/12/24 22:13 Dose: 12.5 mg Documented By: URBANO Potassium Chloride (Potassium Chloride Crtab 20 Meq Tabcr) 20 meq PO NOW STA Stop: 03/12/24 19:36 Last Admin: 03/12/24 21:30 Dose: 20 meq Documented By: URBANO Imaging Data Radiologist's Impression: Chest X-Ray 03/12/24 16:01 Clinical History: Dyspnea Technique: A frontal view of the chest was obtained Findings: There are no definite pulmonary infiltrates. The heart size is at the upper limit of normal. No pleural effusion or pneumothorax is seen. There is suspected mild pulmonary vascular congestion No fracture is noted. No foreign body is seen Impression: Borderline cardiomegaly and mild pulmonary vascular congestion Electronically signed by Marques Roberto 03-12-2024 4:59 PM Chest CTA 03/12/24 17:04 Technique: Axial computed tomography images were obtained of the chest after the administration of intravenous contrast according to the CT angiogram protocol Findings: There is no definite sign of pulmonary embolism. There is mild pulmonary edema. There is a small area of alveolar opacity, likely due to atelectasis. There are small bilateral pleural effusions. There is no pneumothorax. There is no sign of pulmonary fibrosis or other diffuse interstitial process. No endobronchial lesion is seen There are mildly enlarged mediastinal and right hilar lymph nodes, measuring up to 1.5 cm in short axis. The thoracic aorta appears unremarkable with no sign of aneurysm or dissection. There is no pericardial effusion The visualized upper abdomen appears unremarkable. No fracture is seen. No focal osseous lesion is evident Impression: 1. No definite sign of pulmonary embolism 2. Mild pulmonary edema 3. Small bilateral pleural effusions 4. Mild lingular opacity, likely due to atelectasis. A small focus of pneumonia cannot be excluded 5. Mild mediastinal and right hilar adenopathy, nonspecific in nature Electronically signed by Marques Roberto 03-12-2024 6:18 PM Discharge Plan Visit Data Chief Complaint: Shortness of Breath/Dyspnea Stated Complaint: SOB ED Provider: Domenico Roberson Discharge Problem: Community acquired pneumonia, Congestive heart failure, Elevated troponin
[2024-03-13 00:36] LABS: iSTAT Creatinine 0.9 mg/dl (0.6-1.3); iSTAT Hemoglobin 13.9 g/dl (12.0-16.0); iSTAT Ionized Calcium 1.18 mmol/l (1.12-1.32); iSTAT Potassium 3.9 mmol/L (3.3-5.0)
[2024-03-13 06:33] LABS: Basophils # (auto) 0.09 K/uL (0.00-0.20); Basophils % (auto) 0.9 %; Eosinophils # (auto) 0.28 K/uL (0.00-0.50); Eosinophils % (auto) 2.7 %; Hemoglobin 11.5 g/dl (12.0-16.0); Immature Granulocytes # (auto) 0.07 K/uL (0.01-0.20); Immature Granulocytes % (auto) 0.7 %; Lymphocytes # (auto) 2.14 K/uL (1.20-3.40); Lymphocytes % (auto) 20.8 %; Mean Corpuscular Hemoglobin 27.6 pg (25.0-34.0); Mean Corpuscular Hgb Conc 31.9 g/dL (32.0-36.0); Mean Corpuscular Volume 86.5 fL (80.0-100.0); Mean Platelet Volume 12.2 fL (9.4-12.4); Monocytes # (auto) 1.18 K/uL (0.11-0.59); Monocytes % (auto) 11.5 %; Neutrophils # (auto) 6.52 K/uL (1.40-6.50); Neutrophils % (auto) 63.4 %; Platelet Count 158 K/uL (130-400); RDW Coefficient of Variation 15.7 % (11.5-14.5); RDW Standard Deviation 49.3 fL (36.4-46.3); Red Blood Count 4.16 M/uL (4.20-5.40); White Blood Count 10.28 K/ul (4.8-10.8)
[2024-03-13 06:48] LABS: BUN Creatinine Ratio 13.1 (10-20); Calcium 9.3 mg/dl (8.6-10.3); Creatinine Clr Calc Pharmacy 48.9 ml/min
[2024-03-13 06:59] LABS: Troponin I High Sensitivity 50.4 pg/ml (0-14)
[2024-03-13 07:46] LABS: Estimated Average Glucose 117 mg/dl; Hemoglobin A1C 5.7 % (4.5-5.6)
[2024-03-13] MEDS: METOPROLOL TARTRATE 25 MG TAB PO SCH (08:18)
[2024-03-13] MEDS: allopurinoL 100 MG TAB PO SCH (08:19)
[2024-03-13] MEDS: ENOXAPARIN INJ 40 MG/0.4 ML SYR SQ SCH (09:12)
[2024-03-13] MEDS: POTASSIUM CHLORIDE CRTAB 20 MEQ TABCR PO STA (09:40)
[2024-03-13] MEDS: FUROSEMIDE INJ 20 MG/2 ML VIAL IV ONE (09:40)
--- NOTE | 2024-03-13 09:52 | Cardiology Consultation ---
Date of Consultation March 13, 2024 Assessment & Plan (1) Acute heart failure with preserved ejection fraction: (2) Severe mitral regurgitation: 79-year-old female with longstanding history of cardiac murmur, no previous history of echocardiogram per her recollection. She presents with two weeks of progressive shortness of breath, previous history of cold symptoms, but over the last 48 hours things have progressed to dyspnea at rest and with exertion. She was hypertensive and tachycardic on presentation and symptoms improved with administration of 20 mg of IV furosemide (urinary output not recorded) and is feeling quite comfortable at present sitting almost completely supine with no conversational dyspnea and is on no supplementary oxygen at the time my conversation with her. 3/6 systolic murmur heard most prominently in the left axilla and echocardiogram is consistent with severe mitral valve regurgitation with severe mitral prolapse and a partially flail to flail segment of the posterior mitral valve leaflet with an eccentric anteriorly directed jet of mitral regurgitation. Severe pulmonary hypertension is present with pulmonary systolic pressure estimated be 98 mmHg, nearing her systolic blood pressure reading of 112 mmHg this morning. I would speculate that the patient has had progressive mitral regurgitation and has had an acute change perhaps with having had a ruptured chordae within the last few days. Currently hemodynamically stable however her presentation and findings are very concerning. Recommend proceeding with another dose of furosemide 20 mg IV x 1 now along with potassium chloride supplementation. Discussed that I would advise ongoing acute stabilization medically and assessment for surgical intervention of the mitral valve regurgitation in an expedited fashion. There is mild to moderate focal posterior mitral annular calcification which may impair the ability for adequate mitral valve repair, and mitral valve replacement may be necessary. I discussed transfer to the closest tertiary center for evaluation however the patient's initial impression is that she would like to return to [place] for further workup. I am going to help expedite the transfer of her medical record to her home providers for the purpose of coordination of care. Continue rosuvastatin and 40 mg of subcutaneous Lovenox for DVT prophylaxis. Agree with discontinuation of antibiotics as I do not feel her presentation is consistent with pneumonia. I spent a total of 65 minutes on the date of service in preparation, delivery, and documentation of the care provided to this patient, excluding any time spent in the performance of separately billed services. History of Present Illness Attending Physician: True Holt, DO History of Present Illness Megan Erazo is a 79 year old female seen in cardiology consultation per the request of Dr Kim for the evaluation of congestive heart failure and cardiac murmur. The patient is seen on the telemetry unit, room 240-1. She is Accompanied by her daughter, Danni at the bedside. The patient is visiting her family for the holidays and is from [facility]. 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 She describes a long standing history of a cardiac murmur , but has never had an echocardiogram prior to today. Two weeks ago just before she traveled from [place] to [place] she described having had "cold symptoms "including a runny nose and sinus congestion. This progressed to shortness of breath and a cough and she had been evaluated at a local urgent care center just about 2 weeks ago and was treated with a course of prednisone and azithromycin. Over the next few days she felt perhaps a little bit better but then developed progressive shortness of breath with acute worsening over the last 48 hours with nonproductive cough and severe dyspnea at rest and with activity such as attempting to climb a flight of stairs. She returned to the urgent care center yesterday afternoon on 03/12/2024 and was referred to the emergency department due to worsening symptoms. At time of arrival to our emergency department the patient's vital signs included sinus tachycardia with rate of 129 bpm and initial blood pressure of 172/99. Initial chest x-ray revealed enlargement of the cardiac silhouette and mild pulmonary vascular congestion. A CT angiogram of the chest performed on arrival yesterday revealed no pulmonary embolism with evidence of mild pulmonary edema and small bilateral pleural effusions. He natruretic peptide was mildly elevated at 390 PG per mL (normal reference range 0-100 PG per mL), initial high sensitive troponin I was mildly elevated at 36.5 and was subsequently 68 and then 50.4 PG per mL with most recent measurement this morning at 5:52 AM. The patient received 20 mg of IV furosemide at 2130 last night. She describes having urinated vigorously but her intake and output data were not recorded. Per review of her vital signs her heart rate and blood pressure steadily improved with heart rate on telemetry in the range of 60 to 80 bpm and most recent blood pressure 112/73. She is comfortable at the time of my evaluation without conversational dyspnea laying almost completely supine with her head at an angle of approximately 20 to 30 degrees. Past Medical History: Heart murmur Bronchial asthma Dyslipidemia Prediabetes Gout Family History: Father at the age of 82 with history of CABG x 2 and a history of "irregular heartbeat "details unknown Mother at the age of 87 had a history of a pacemaker The patient has a twin sister with no known heart issues Social History: Non smoker lives in [facility], 6 adult children Allergies Allergy/AdvReac Type Severity Reaction Status Date / Time Penicillins Allergy Unknown Verified 03/12/24 16:40 narcotics AdvReac Unknown Uncoded 03/12/24 16:40 Home Medications Medication Instructions Recorded Confirmed Type allopurinol 100 mg tablet 100 mg PO QAM 03/12/24 03/12/24 History cholecalciferol (vitamin D3) 10 10 mcg PO DAILY 03/12/24 03/12/24 History mcg (400 unit) tablet (Vitamin D3) omega 3 350 mg-dha 235 mg-epa 90 1 cap PO DAILY 03/12/24 03/12/24 History mg-fish oil 597 mg capsule,delay rel (Roca-3) rosuvastatin 5 mg tablet 5 mg PO HS 03/12/24 03/12/24 History Patient History Social History Smoking Status: Never smoker Hx Alcohol Use: No Hx Substance Use: No Preferred Language: Telugu Communication Ability: Effective Search Planner Required: No Beliefs That Will Affect Care: None Current Living Situation: Spouse and Family Other Information That Helps Us Care for You: No Feels Safe at Home: Yes Safety Concerns: Feels Safe At This Time Assistive Devices: Glasses Review of Systems Review of Systems: All systems reviewed & are unremarkable except as noted in HPI & below Physical Exam Physical Exam: Temp Pulse Resp BP Pulse Ox O2 Del Method O2 Flow Rate 36.9 C 83 19 112/73 96 Nasal Cannula 2 03/13/24 07:18 03/13/24 08:38 03/13/24 07:18 03/13/24 07:18 03/13/24 07:18 03/13/24 07:18 03/13/24 07:18 General: no acute distress and stated age Eyes: conjunctiva are pink and non-injected, sclera clear Neck: normal jugular venous pulse, no hepatojugular reflux Chest: normal shape and normal respiratory effort Lungs: Mild bilateral rales at the bases, no wheezing Cardiac Exam: - regular heart sounds, 3/6 systolic murmur heard best in the left axilla Abdomen: abdomen soft, non-tender, no abnormal masses and no hepatosplenomegaly Musculoskeletal: no gait disturbance, no weakness Extremities: no edema and no cyanosis Neuro:awake, conversant, follows commands, no focal motor deficits Psych: appropriate affect and insight. Results & Data Vital Signs (Past 12 Hours) Vital Signs Temp Pulse Pulse Resp BP BP Pulse Ox 03/13/24 08:38 83 03/13/24 07:18 36.9 C 95 H 19 112/73 96 03/13/24 04:03 36.6 C 89 18 118/76 96 03/13/24 01:05 03/13/24 00:43 37.0 C 95 H 20 110/74 93 03/13/24 00:03 88 30 H 120/71 93 03/12/24 23:49 91 H 03/12/24 23:48 89 24 113/70 95 03/12/24 23:00 94 H 18 116/72 94 03/12/24 22:03 104 H 18 132/66 98 O2 Del Method O2 Flow Rate 03/13/24 08:38 03/13/24 07:18 Nasal Cannula 2 03/13/24 04:03 Nasal Cannula 03/13/24 01:05 Nasal Cannula 2 03/13/24 00:43 Nasal Cannula 03/13/24 00:03 03/12/24 23:49 03/12/24 23:48 03/12/24 23:00 03/12/24 22:03 Nasal Cannula 2 Laboratory Results Cardiac Enzymes 03/12/24 03/12/24 03/13/24 Range/Units 16:07 18:27 05:52 AST 34 (13-39) U/L Troponin I High Sens 36.5 H 68.0 H* D 50.4 H* D (0-14) pg/ml B-Natriuretic Peptide 390 H (0-100) pg/ml Coagulation 03/12/24 Range/Units 16:07 APTT 27 (21-31) Seconds B-Natriuretic Peptide 390 H (0-100) pg/ml CBC 03/12/24 03/13/24 Range/Units 16:07 05:52 WBC 13.80 H 10.28 (4.8-10.8) K/ul RBC 4.65 4.16 L (4.20-5.40) M/uL Hgb 12.7 11.5 L (12.0-16.0) g/dl Hct 40.2 36.0 L (37.0-47.0) % Plt Count 186 158 (130-400) K/uL Neut # (Auto) 11.30 H 6.52 H (1.40-6.50) K/uL Lymph # (Auto) 1.42 2.14 (1.20-3.40) K/uL [place] # (Auto) 0.85 H 1.18 H (0.11-0.59) K/uL Eos # (Auto) 0.06 0.28 (0.00-0.50) K/uL Baso # (Auto) 0.07 0.09 (0.00-0.20) K/uL Comprehensive Metabolic Panel 03/12/24 03/13/24 Range/Units 16:07 05:52 Sodium 141 140 (136-145) mmol/L Potassium 3.9 4.0 (3.5-5.1) mmol/L Chloride 108 H 105 (98-107) mmol/L Carbon Dioxide 22 26 (21-32) mmol/L BUN 12 13 (6-23) mg/dl Creatinine 0.88 0.99 (0.6-1.2) mg/dl Glucose 136 H 114 H (70-99(Fasting)) mg/dl Calcium 9.9 9.3 (8.6-10.3) mg/dl AST 34 (13-39) U/L ALT 69 H (7-52) U/L Alkaline Phosphatase 172 H (34-104) U/L Total Protein 7.8 (6.0-8.3) gm/dl Albumin 4.5 (3.4-5.0) gm/dl Intake and Output 03/12/24 03/13/24 03/13/24 22:59 06:59 14:59 Intake Total 100 / 350 250 / 350 Balance 100 / 350 250 / 350 Intake: IV 100 / 200 100 / 200 Doxycycline Hyclate 100 mg In 100 / 100 Dextrose 5% Mini-B 100 ml @ 50 mls/hr IV NOW STA Rx#:[id number] Magnesium Sulfate / D5w 1 gm In 100 / 100 100 ml @ 50 mls/hr IV ONE ONE Rx#:[id number] Oral 150 / 150 Other: # Unmeasured Voids 2 Weight 79.1 kg 77.2 kg Weight Measurement Method Chair Scale Standing Scale Diagnostic Findings EKG performed 03/12/2024 at 1558 and reviewed/interpreted independently: Sinus tachycardia at [address]-T abnormality with upsloping ST segment depression in the inferior and lateral leads. Repeat tracing 03/13/2024 at 9:27 AM: Normal sinus rhythm at 93 bpm, compared to the previous tracing the previously noted ST segment depression has resolved. The corrected QT interval is mildly prolonged at 499 ms Summary of transthoracic echocardiogram performed this morning at the bedside and reviewed/interpreted independently: The study is technically adequate for the evaluation of the referral indication. The left ventricle is normal in size. There is normal left ventricular wall thickness. The left ventricle is hyperdynamic. Left Ventricular Ejection Fraction = >70 %. No regional wall motion abnormalities noted. The right ventricle is normal in size and function. The left atrium is mildly dilated. There is moderate posterior mitral annular calcification. There is severe mitral valve prolapse . The posterior mitral valve leaflet is partially flail or flail. There is severe mitral valve regurgitation with an eccentric anteriorly directed wall impinging jet. There is mild tricuspid regurgitation. Severe pulmonary hypertension is present. The pulmonary systolic pressure is estimated to be 98 mm Hg, which is near to her systolic blood pressure reading of 112 mm Hg. There are no prior studies available for direct comparison.
--- NOTE | 2024-03-13 09:58 | Electrocardiogram Report ---
Test Reason : Blood Pressure : */* mmHG Vent. Rate : 129 BPM Atrial Rate : 129 BPM P-R Int : 146 ms QRS Dur : 90 ms QT Int : 304 ms P-R-T Axes : 89 68 73 degrees QTcB Int : 445 ms Sinus tachycardia Possible Left atrial enlargement Minimal voltage criteria for LVH, may be normal variant Nonspecific ST abnormality Abnormal ECG No previous ECGs available Confirmed by Casper Flowers ([id number]) on 03/13/2024 9:58:38 AM Referred By: Confirmed By: Casper Flowers
[2024-03-13] MEDS: ACETAMINOPHEN 325 MG TAB PO PRN (11:01)
--- NOTE | 2024-03-13 13:09 | Hospitalist Progress Note ---
Date of Service March 13, 2024 Assessment & Plan (1) Acute diastolic heart failure due to valvular disease: (2) Acute heart failure with preserved ejection fraction: (3) Severe mitral regurgitation: (4) Severe pulmonary hypertension: (5) Mitral valve prolapse: (6) Prediabetes: Plan Patient visiting from [place] with acute symptoms of heart failure. Patient with acute heart failure due to valvular failure and pulmonary pretension. Pneumonia/infectious process ruled out with normal procalcitonin Stop antibiotics Continue IV diuresis Reviewed cardiology consultation. Plan to stabilize patient on medical therapy and family has already coordinated for patient to have valvular replacement expedited when she returns home. and daughters at bedside updated the plan Admission and Anticipated Discharge Date Admission Date: March 12, 2024 Subjective Patient is feeling a little bit better that that she is diuresed. Diet is admit to a cough over the last few weeks but it is nonpurulent, occasionally bloody Physical Exam Physical Exam: Constitutional: Alert, nontoxic, no acute distress HEENT: Mucous membranes moist. Lungs: Decreased, diffuse Rales throughout, no wheezes CV: S1-S2, regular, grade 3/6 systolic blowing murmur Abdomen: Soft, nontender, nondistended Extremities: +2 ankle edema Neuro: No focal deficits Psych: Cooperative, normal mood Results & Data Results & Data Vital Signs (Past 12 Hours) Vital Signs Temp Pulse Pulse Resp BP Pulse Ox O2 Del Method 03/13/24 11:17 37.2 C 99 H 19 118/78 99 Room Air 03/13/24 10:15 Room Air 03/13/24 08:38 83 03/13/24 07:18 36.9 C 95 H 19 112/73 96 Nasal Cannula 03/13/24 04:03 36.6 C 89 18 118/76 96 Nasal Cannula O2 Flow Rate 03/13/24 11:17 03/13/24 10:15 03/13/24 08:38 03/13/24 07:18 2 03/13/24 04:03 Diagnostic Findings Reviewed imaging, laboratory and diagnostic studies. Pertinent findings as below. Hemoglobin [place] 0.5 Potassium 4.0 Creatinine 0.9 Hemoglobin A1c 5.7% Troponins reviewed TSH 2.4 Procalcitonin 0.04 Reviewed echocardiogram, ejection fraction 70% No wall motion abnormalities Severe mitral prolapse and severe mitral regurgitation. Severe pulmonary hypertension
[2024-03-13] MEDS: POTASSIUM CHLORIDE CRTAB 20 MEQ TABCR PO SCH (15:50)
[2024-03-13] MEDS: BENZONATATE 100 MG CAPSULE PO PRN (19:34)
[2024-03-13] MEDS: FUROSEMIDE INJ 20 MG/2 ML VIAL IV SCH (19:35)
[2024-03-14 06:39] LABS: Calcium 9.7 mg/dl (8.6-10.3); Creatinine Clr Calc Pharmacy 47.8 ml/min; Potassium 4.5 mmol/L (3.5-5.1)
[2024-03-14] MEDS: METOPROLOL SUCC 25MG EXT REL TAB PO SCH (09:17)
--- NOTE | 2024-03-14 09:35 | Hospitalist Progress Note ---
Date of Service March 14, 2024 Assessment & Plan (1) Acute diastolic heart failure due to valvular disease: (2) Acute heart failure with preserved ejection fraction: (3) Severe mitral regurgitation: (4) Severe pulmonary hypertension: (5) Mitral valve prolapse: (6) Prediabetes: Plan Patient visiting from [place] with acute symptoms of heart failure. Patient with acute heart failure due to valvular failure and pulmonary pretension. Pneumonia/infectious process ruled out with normal procalcitonin antibiotics were stopped Continue IV diuresis Cardiology consulted and discussed with. Plan to stabilize patient on medical therapy and family has already coordinated for patient to have valvular replacement expedited when she returns home. CM involved. Hopefully able to transfer tomorrow to the airport and then transferred to [place]. Detailed discussion in cardiology note. Admission and Anticipated Discharge Date Admission Date: March 12, 2024 Subjective Pt seen in follow up of CHF 2/2 severe MR Pt is visiting from [place] Cardiology consulted and following- discussed w/ in detail -> plan to transfer to [place] for CT surgery, also discussed w/ CM in detail Pt is sitting up in bed in NAD, overall feeling much better, no chest pain or shortness of breath Review of Systems Review of Systems: All systems reviewed & are unremarkable except as noted in Subjective Physical Exam Physical Exam: Constitutional: WD/WN F in NAD HEENT: NC/AT, EOMI. Mucous membranes moist. Lungs: Decreased, diffuse Rales throughout, no wheezes CV: S1-S2, regular, grade 3/6 systolic blowing murmur Abdomen: Soft, nontender, nondistended Extremities: +2 ankle edema Neuro: No focal deficits Psych: Cooperative, normal mood Results & Data Results & Data Vital Signs (Past 12 Hours) Vital Signs Temp Pulse Pulse Resp BP Pulse Ox O2 Del Method 03/14/24 07:27 87 03/14/24 07:04 36.8 C 90 19 114/75 91 Room Air 03/14/24 02:53 36.9 C 77 18 111/73 93 Room Air 03/13/24 23:02 36.9 C 83 18 110/70 93 Room Air Laboratory Results 03/14/24 Range/Units 05:52 Sodium 142 (136-145) mmol/L Potassium 4.5 (3.5-5.1) mmol/L Chloride 108 H (98-107) mmol/L Carbon Dioxide 25 (21-32) mmol/L Anion Gap 9 (3-11) BUN 24 H (6-23) mg/dl Creatinine 1.00 (0.6-1.2) mg/dl Est Cr Clr Drug Dosing 47.8 ml/min eGFR 58.02 BUN/Creatinine Ratio 24.0 H (10-20) Glucose 111 H (70-99(Fasting)) mg/dl Calcium 9.7 (8.6-10.3) mg/dl Total Bilirubin 1.1 H (0.2-1.0) mg/dl Direct Bilirubin 0.2 (0-0.2) mg/dl AST 17 (13-39) U/L ALT 39 (7-52) U/L Alkaline Phosphatase 137 H (34-104) U/L Total Protein 7.3 (6.0-8.3) gm/dl Albumin 4.1 (3.4-5.0) gm/dl Medications Administered Current Inpatient Medications Acetaminophen (Acetaminophen 325 Mg Tab) 650 mg PO QID PRN PRN Reason: pain/fever Stop: 04/11/24 21:28 Last Admin: 03/13/24 11:01 Dose: 650 mg Allopurinol (Allopurinol 100 Mg Tab) 100 mg PO QAM [facility] Stop: 04/12/24 08:59 Last Admin: 03/14/24 09:16 Dose: 100 mg Benzonatate (Benzonatate 100 Mg Capsule) 100 mg PO TID PRN PRN Reason: Cough Stop: 04/11/24 20:46 Last Admin: 03/13/24 19:34 Dose: 100 mg Enoxaparin Sodium (Enoxaparin Inj 40 Mg/0.4 Ml Syr) 40 mg SQ QAM [facility] Stop: 04/12/24 08:59 Last Admin: 03/14/24 09:18 Dose: 40 mg Furosemide (Furosemide Inj 20 Mg/2 Ml Vial) 20 mg IV BID [facility] Stop: 04/12/24 20:59 Last Admin: 03/14/24 09:13 Dose: 20 mg Guaifenesin (Guaifenesin 600 Mg Tabcr) 600 mg PO Q12 [facility] Stop: 04/11/24 21:59 Last Admin: 03/14/24 09:16 Dose: 600 mg Hydroxyzine HCl (Hydroxyzine Hcl 10 Mg Tab) 10 mg PO QID PRN PRN Reason: Anxiety Stop: 04/11/24 20:46 Promethazine HCl (Phenergan) 6.25 mg in 50.25 mls @ 201 mls/hr IV Q6H PRN PRN Reason: Nausea And Vomiting Stop: 04/11/24 20:46 Metoprolol Succinate (Metoprolol Succ 25mg Ext Rel Tab) [facility] Stop: 04/13/24 08:59 Last Admin: 03/14/24 09:17 Dose: 25 mg Potassium Chloride (Potassium Chloride Crtab 20 Meq Tabcr) 40 meq PO [facility] Stop: 04/12/24 13:29 Last Admin: 03/14/24 09:29 Dose: 40 meq Rosuvastatin Calcium (Rosuvastatin Calcium 5 Mg Tab) 5 mg PO [facility] Stop: 04/11/24 21:59 Last Admin: 03/13/24 19:37 Dose: 5 mg Sennosides (Senna 8.6 Mg Tab) 8.6 mg PO [facility] Stop: 04/13/24 16:14 Last Admin: 03/14/24 16:39 Dose: 8.6 mg
--- NOTE | 2024-03-14 10:14 | Cardiology Progress Note ---
Date of Service March 14, 2024 Assessment & Plan (1) Acute heart failure with preserved ejection fraction: (2) Severe mitral regurgitation: Plan: 79-year-old female with longstanding history of cardiac murmur, no previous history of echocardiogram per her recollection. She presents with two weeks of progressive shortness of breath, previous history of cold symptoms, but over the last 48 hours things have progressed to dyspnea at rest and with exertion. She was hypertensive and tachycardic on presentation and symptoms improved with administration of 20 mg of IV furosemide (urinary output not recorded) and is feeling quite comfortable at present sitting almost completely supine with no conversational dyspnea and is on no supplementary oxygen at the time my conversation with her. 3/6 systolic murmur heard most prominently in the left axilla and echocardiogram is consistent with severe mitral valve regurgitation with severe mitral prolapse and a partially flail to flail segment of the posterior mitral valve leaflet with an eccentric anteriorly directed jet of mitral regurgitation. Severe pulmonary hypertension is present with pulmonary systolic pressure estimated be 98 mmHg, nearing her systolic blood pressure reading of 112 mmHg this morning. I would speculate that the patient has had progressive mitral regurgitation and has had an acute change perhaps with having had a ruptured chordae within the last few days. 03/14/2024: Currently hemodynamically stable however her presentation and findings are very concerning. Urinary output of 725 mL recorded but I am not certain this is accurate. Continue furosemide 20 mg IV twice daily plus potassium supplementation. Change metoprolol tartrate to metoprolol succinate at 25 mg daily. Proceed with PA/ Lateral Chest X-ray this am. I did liudmila conversation with the patient and her 2 daughters. The patient is a resident of [facility]. We discussed options such as transfer to a tertiary care center in [place] for expedited workup to include transesophageal echocardiogram, cardiac catheterization, and CT surgery evaluation for mitral valve repair versus replacement and I think this needs to be performed sooner rather than later as given the patient's clinical presentation I think there is a very narrow window before she could have progressive issues such as development of hemodynamic instability and left ventricular systolic dysfunction. The patient prefers to have her further workup and surgery performed closer to her home in [place] at [facility]. She has a family friend, Dr Stuart, who is a cardiac surgeon at this institution whom I was able to contact by phone yesterday 03/13/2024 and discussed her case. He states that he would be able to help expedite hospital admission and evaluation when she returns to home. The family initially had considered driving her home by private automobile after discharge from this institution but after thinking about it more both of her daughters have grown concerned that this is [place] 13[place] [address] [place]. At this time I included case management and the discussions to see if we could find a private air ambulance service that might be able to provide transportation. The patient's family states they have the resources to pay for such a service. I spent a total of 45 minutes on the date of service in preparation, delivery, and documentation of the care provided to this patient, excluding any time spent in the performance of separately billed services. Admission and Anticipated Discharge Date Admission Date: March 12, 2024 Subjective Patient seen in cardiology follow-up. No distress. On telemetry for the most part sinus rhythm in the 80s present although sinus tachycardia with rate in the range of 100 210 bpm noted with minimal walking such as to the restroom. No difficulty with minimal walking to the restroom. She was able to sleep last night. She states her routine is that she typically does prop up her head as of recently and her head has been elevated to about 20 to 30 degrees in her hospital bed without orthopnea. Physical Exam Physical Exam: Temp Pulse Resp BP Pulse Ox O2 Del Method O2 Flow Rate 36.8 C 87 19 114/75 91 Room Air 2 03/14/24 07:04 03/14/24 07:27 03/14/24 07:04 03/14/24 07:04 03/14/24 07:04 03/14/24 07:04 03/13/24 07:18 General: no acute distress and stated age Eyes: conjunctiva are pink and non-injected, sclera clear Neck: normal jugular venous pulse, no hepatojugular reflux Chest: normal shape and normal respiratory effort Lungs: Mild bilateral rales at the bases, no wheezing Cardiac Exam: - regular heart sounds, 3/6 systolic murmur heard best in the left axilla Abdomen: abdomen soft, non-tender, no abnormal masses and no hepatosplenomegaly Musculoskeletal: no gait disturbance, no weakness Extremities: no edema and no cyanosis Neuro:awake, conversant, follows commands, no focal motor deficits Psych: appropriate affect and insight. Results & Data Vital Signs (Past 12 Hours) Vital Signs Temp Pulse Pulse Resp BP Pulse Ox O2 Del Method 03/14/24 07:27 87 03/14/24 07:04 36.8 C 90 19 114/75 91 Room Air 03/14/24 02:53 36.9 C 77 18 111/73 93 Room Air 03/13/24 23:02 36.9 C 83 18 110/70 93 Room Air Laboratory Results Comprehensive Metabolic Panel 03/14/24 Range/Units 05:52 Sodium 142 (136-145) mmol/L Potassium 4.5 (3.5-5.1) mmol/L Chloride 108 H (98-107) mmol/L Carbon Dioxide 25 (21-32) mmol/L BUN 24 H (6-23) mg/dl Creatinine 1.00 (0.6-1.2) mg/dl Glucose 111 H (70-99(Fasting)) mg/dl Calcium 9.7 (8.6-10.3) mg/dl Intake and Output 03/13/24 03/14/24 03/14/24 22:59 06:59 14:59 Intake Total 320 / 895 Output Total 150 / 725 Balance 170 / 170 Intake: Oral 320 / 895 Output: Urine 150 / 725 Other: Weight 75.3 kg Weight Measurement Method Built in [facility]
[2024-03-14 10:37] LABS: Albumin Level 4.1 gm/dl (3.4-5.0); Bilirubin Direct 0.2 mg/dl (0-0.2); Bilirubin,Total 1.1 mg/dl (0.2-1.0)
[2024-03-14 10:43] LABS: Total Protein 7.3 gm/dl (6.0-8.3)
--- NOTE | 2024-03-14 10:57 | XRay Report ---
XR chest 2V PA/lateral CLINICAL HISTORY: follow up CHF, severe mitral regurgitation COMPARISON STUDY: Chest radiograph and chest CT March 12, 2024. FINDINGS: There is no pneumothorax. Trace bilateral pleural effusions are unchanged. Pulmonary edema has improved. There is residual pulmonary vascular congestion. Cardiomegaly is again noted. IMPRESSION: 1. Interval improvement in pulmonary edema. 2. Trace bilateral pleural effusions, unchanged. ACT 112: Negative or not required by law. Electronically signed by: Clifford Perez M.D. 03/14/2024 10:56 AM
[2024-03-14] MEDS: SENNA 8.6 MG TAB PO SCH (16:39)
[2024-03-15 06:44] LABS: Hematocrit (blood only) 41.5 % (37.0-47.0); Hemoglobin 13.3 g/dl (12.0-16.0); Mean Corpuscular Hemoglobin 27.2 pg (25.0-34.0); Mean Corpuscular Volume 84.9 fL (80.0-100.0); Mean Platelet Volume 12.3 fL (9.4-12.4); Platelet Count 183 K/uL (130-400); RDW Coefficient of Variation 15.7 % (11.5-14.5); RDW Standard Deviation 47.8 fL (36.4-46.3); Red Blood Count 4.89 M/uL (4.20-5.40); White Blood Count 9.84 K/ul (4.8-10.8)
[2024-03-15 07:11] LABS: Calcium 10.1 mg/dl (8.6-10.3); Creatinine Clr Calc Pharmacy 41.3 ml/min; Magnesium 2.4 mg/dl (1.7-2.4); Phosphorus 5.2 mg/dl (2.5-4.9); Potassium 4.4 mmol/L (3.5-5.1)
--- NOTE | 2024-03-15 12:17 | Cardiology Progress Note ---
Date of Service March 15, 2024 Assessment & Plan (1) Acute heart failure with preserved ejection fraction: (2) Severe mitral regurgitation: Plan: * Continue metoprolol succinate 25 mg daily and furosemide 20 mg IV BID. * Continue rosuvastatin 5 mg daily. * Additional evaluation to include LEXY, cardiac catheterization and expedited CT surgery evaluation for surgical intervention of mitral regurgitation indicated, however patient prefers to have this at home * Arrangements in process for transfer by plan (air ambulance) to [facility] in [facility] likely today. * Accepting physician Dr Stuart of CT surgery * Case discussed with Dr Hernandez for the purpose of coordination of care. * I also provided verbal report to the Air Ambulance crew by phone. Admission and Anticipated Discharge Date Admission Date: March 12, 2024 Subjective Patient seen in cardiology follow up. Feeling well. No orthopnea. Mild shortness of breath with short walks to the rest room , but minimal. Symptoms significantly improved compared to the days leading up to her hospitalization. Telemetry reveals Sinus rhythm with sinus tachycardia with rate in the 90s to low 100s. Physical Exam Physical Exam: Temp Pulse Resp BP Pulse Ox O2 Del Method O2 Flow Rate 36.4 C L 94 H 19 122/84 95 Room Air 2 03/15/24 10:54 03/15/24 10:54 03/15/24 10:54 03/15/24 10:54 03/15/24 10:54 03/15/24 10:54 03/13/24 07:18 General: no acute distress and stated age Eyes: conjunctiva are pink and non-injected, sclera clear Neck: normal jugular venous pulse, no hepatojugular reflux Chest: normal shape and normal respiratory effort Lungs: Mild bilateral rales at the bases, no wheezing Cardiac Exam: - regular heart sounds, 3/6 systolic murmur heard best in the left axilla Abdomen: abdomen soft, non-tender, no abnormal masses and no hepatosplenomegaly Musculoskeletal: no gait disturbance, no weakness Extremities: no edema and no cyanosis Neuro:awake, conversant, follows commands, no focal motor deficits Psych: appropriate affect and insight. Results & Data Vital Signs (Past 12 Hours) Vital Signs Temp Pulse Pulse Resp BP Pulse Ox O2 Del Method 03/15/24 10:54 36.4 C L 94 H 19 122/84 95 Room Air 03/15/24 08:57 86 01/02/25 08:57 Room Air 03/15/24 07:06 36.6 C 92 H 19 114/74 92 Room Air 03/15/24 04:00 36.6 C 95 H 16 116/78 94 Room Air Laboratory Results CBC 03/15/24 Range/Units 06:10 WBC 9.84 (4.8-10.8) K/ul RBC 4.89 (4.20-5.40) M/uL Hgb 13.3 (12.0-16.0) g/dl Hct 41.5 (37.0-47.0) % Plt Count 183 (130-400) K/uL Comprehensive Metabolic Panel 03/15/24 Range/Units 06:10 Sodium 140 (136-145) mmol/L Potassium 4.4 (3.5-5.1) mmol/L Chloride 106 (98-107) mmol/L Carbon Dioxide 23 (21-32) mmol/L BUN 38 H (6-23) mg/dl Creatinine 1.15 (0.6-1.2) mg/dl Glucose 119 H (70-99(Fasting)) mg/dl Calcium 10.1 (8.6-10.3) mg/dl Intake and Output 03/14/24 03/15/24 03/15/24 22:59 06:59 14:59 Intake Total 420 / 1000 100 / 1000 Output Total 700 / 1450 200 / 1450 200 / 200 Balance -280 / -450 -100 / -450 -200 / -200 Intake: Oral 420 / 1000 100 / 1000 Output: Urine 700 / 1450 200 / 1450 200 / 200 Other: Weight 74 kg Weight Measurement Method Standing Scale
--- NOTE | 2024-03-15 16:42 | Hospitalist Progress Note ---
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 Patient with acute heart failure due to valvular failure and pulmonary hypertension. Pneumonia/infectious process ruled out with normal procalcitonin, antibiotics were stopped Continue IV diuresis Cardiology consulted and discussed with in detail. Per cardiology * Continue metoprolol succinate 25 mg daily and furosemide 20 mg IV BID. * Continue rosuvastatin 5 mg daily. * Additional evaluation to include LEXY, cardiac catheterization and expedited CT surgery evaluation for surgical intervention of mitral regurgitation indicated, however patient prefers to have this at home * Arrangements in process for transfer by plan (air ambulance) to [facility] in [facility] * Accepting physician Dr Stuart of CT surgery Admission and Anticipated Discharge Date Admission Date: March 12, 2024 Subjective Pt seen in follow up of CHF 2/2 severe MR Pt is visiting from [place] Cardiology consulted and following- discussed w/ in detail -> plan to transfer to [place] for CT surgery, also discussed w/ CM in detail - transport being arranged Pt is sitting up in bed in NAD, overall feeling much better, no chest pain or shortness of breath at rest Review of Systems Review of Systems: All systems reviewed & are unremarkable except as noted in Subjective Physical Exam Physical Exam: Constitutional: WD/WN F in NAD HEENT: NC/AT, EOMI. Mucous membranes moist. Lungs: Decreased, CTAB, no wheezes CV: regular, grade 3/6 systolic blowing murmur Abdomen: Soft, nontender, nondistended Extremities: no LE edema Neuro: No focal deficits Psych: Cooperative, normal mood Results & Data Results & Data Vital Signs (Past 12 Hours) Vital Signs Temp Pulse Pulse Resp BP Pulse Ox O2 Del Method 03/15/24 15:23 36.8 C 90 18 111/79 95 Room Air 03/15/24 14:04 92 H 03/15/24 10:54 36.4 C L 94 H 19 122/84 95 Room Air 03/15/24 08:57 86 03/15/24 08:57 Room Air 03/15/24 07:06 36.6 C 92 H 19 114/74 92 Room Air Laboratory Results 03/15/24 Range/Units 06:10 WBC 9.84 (4.8-10.8) K/ul RBC 4.89 (4.20-5.40) M/uL Hgb 13.3 (12.0-16.0) g/dl Hct 41.5 (37.0-47.0) % MCV 84.9 (80.0-100.0) fL MCH 27.2 (25.0-34.0) pg MCHC 32.0 (32.0-36.0) g/dL RDW Std Deviation 47.8 H (36.4-46.3) fL RDW Coeff of Shweta 15.7 H (11.5-14.5) % Plt Count 183 (130-400) K/uL MPV 12.3 (9.4-12.4) fL Sodium 140 (136-145) mmol/L Potassium 4.4 (3.5-5.1) mmol/L Chloride 106 (98-107) mmol/L Carbon Dioxide 23 (21-32) mmol/L Anion Gap 11 (3-11) BUN 38 H (6-23) mg/dl Creatinine 1.15 (0.6-1.2) mg/dl Est Cr Clr Drug Dosing 41.3 ml/min eGFR 49.06 BUN/Creatinine Ratio 33.0 H (10-20) Glucose 119 H (70-99(Fasting)) mg/dl Calcium 10.1 (8.6-10.3) mg/dl Phosphorus 5.2 H (2.5-4.9) mg/dl Magnesium 2.4 (1.7-2.4) mg/dl Medications Administered Current Inpatient Medications Acetaminophen (Acetaminophen 325 Mg Tab) 650 mg PO QID PRN PRN Reason: pain/fever Stop: 04/11/24 21:28 Last Admin: 03/13/24 11:01 Dose: 650 mg [facility]opurinol ([facility] 100 Mg Tab) [facility] [place]: 04/12/24 08:59 Last Admin: 03/15/24 08:34 Dose: 100 mg Benzonatate (Benzonatate 100 Mg Capsule) 100 mg PO TID PRN PRN Reason: Cough Stop: 04/11/24 20:46 Last Admin: 03/13/24 19:34 Dose: 100 mg Enoxaparin Sodium (Enoxaparin Inj 40 Mg/0.4 Ml Syr) 40 mg SQ QAM [facility] Stop: 04/12/24 08:59 Last Admin: 03/15/24 08:33 Dose: 40 mg Furosemide (Furosemide Inj 20 Mg/2 Ml Vial) 20 mg IV BID [facility] Stop: 04/12/24 20:59 Last Admin: 03/15/24 08:35 Dose: 20 mg Guaifenesin (Guaifenesin 600 Mg Tabcr) 600 mg PO Q12 [facility] Stop: 04/11/24 21:59 Last Admin: 03/15/24 08:34 Dose: 600 mg Hydroxyzine HCl (Hydroxyzine Hcl 10 Mg Tab) 10 mg PO QID PRN PRN Reason: Anxiety Stop: 04/11/24 20:46 Promethazine HCl (Phenergan) 6.25 mg in 50.25 mls @ 201 mls/hr IV Q6H PRN PRN Reason: Nausea And Vomiting Stop: 04/11/24 20:46 Metoprolol Succinate (Metoprolol Succ 25mg Ext Rel Tab) [facility] [place] Stop: 04/13/24 08:59 Last Admin: 03/15/24 08:35 Dose: 25 mg Potassium Chloride (Potassium Chloride Crtab 20 Meq Tabcr) 40 meq [facility] [place] Stop: 04/12/24 13:29 Last Admin: 03/15/24 08:44 Dose: 40 meq Rosuvastatin Calcium (Rosuvastatin Calcium 5 Mg Tab) 5 mg PO HS [facility] Stop: 04/11/24 21:59 Last Admin: 03/14/24 20:44 Dose: 5 mg Sennosides (Senna 8.6 Mg Tab) 8.6 [facility] [place] Stop: 04/13/24 16:14 Last Admin: 03/15/24 08:35 Dose: 8.6 mg
[2024-03-16 07:22] VITALS: BP 109/78; RESP 17; TEMP 97.7; O2SAT 96
[2024-03-16 07:39] LABS: Hematocrit (blood only) 43.3 % (37.0-47.0); Hemoglobin 13.8 g/dl (12.0-16.0); Mean Corpuscular Hemoglobin 27.5 pg (25.0-34.0); Mean Corpuscular Hgb Conc 31.9 g/dL (32.0-36.0); Mean Corpuscular Volume 86.4 fL (80.0-100.0); Mean Platelet Volume 12.3 fL (9.4-12.4); Platelet Count 197 K/uL (130-400); RDW Coefficient of Variation 15.3 % (11.5-14.5); RDW Standard Deviation 48.6 fL (36.4-46.3); Red Blood Count 5.01 M/uL (4.20-5.40); White Blood Count 9.51 K/ul (4.8-10.8)
[2024-03-16 07:45] LABS: Albumin Globulin Ratio 1.3 (0.9-2); Albumin Level 4.7 gm/dl (3.4-5.0); BUN Creatinine Ratio 38.3 (10-20); Bilirubin,Total 0.9 mg/dl (0.2-1.0); Calcium 10.2 mg/dl (8.6-10.3); Creatinine Clr Calc Pharmacy 41.1 ml/min; Globulin 3.6 gm/dl (2.5-4.0); Potassium 4.6 mmol/L (3.5-5.1); Total Protein 8.3 gm/dl (6.0-8.3)
--- NOTE | 2024-03-16 10:10 | Cardiology Progress Note ---
Date of Service March 16, 2024 Assessment & Plan (1) Acute heart failure with preserved ejection fraction: (2) Severe mitral regurgitation: Plan: * Continue metoprolol succinate 25 mg daily change IV furosemide to furosemide 40 mg by mouth daily , potassium chloride 20 meq my mouth daily. * Continue rosuvastatin 5 mg daily. * Additional evaluation to include LEXY, cardiac catheterization and expedited CT surgery evaluation for surgical intervention of mitral regurgitation indicated, however patient prefers to have this at home * Arrangements for transfer to tertiary center closest to patient by home by air ambulance did not come to fruition. * My impression is that patient clinically stable for discharge and return with her family to [place], but would recommend expedited work up for mitral valve intervention. * Family states that the closest metropolitan area from our location is [place]. * I will reach out to CT surgery and cardiology at [facility] and arrange hand off with plans for patient to drive with family to that location. Admission and Anticipated Discharge Date Admission Date: March 12, 2024 Subjective Patient feeling well. Denies orthopnea. Pulse oximetry 96% on room air. Telemetry reveals sinus rhythm in the 70s to 80s. Review of Systems Review of Systems: All systems reviewed & are unremarkable except as noted in HPI & below Physical Exam Physical Exam: Temp Pulse Resp BP Pulse Ox O2 Del Method O2 Flow Rate 36.5 C 88 17 109/78 96 Room Air 2 03/16/24 07:21 03/16/24 07:21 03/16/24 07:21 03/16/24 07:21 03/16/24 07:21 03/16/24 07:21 03/13/24 07:18 General: no acute distress and stated age Eyes: conjunctiva are pink and non-injected, sclera clear Neck: normal jugular venous pulse, no hepatojugular reflux Chest: normal shape and normal respiratory effort Lungs: Mild bilateral rales at the bases, no wheezing Cardiac Exam: - regular heart sounds, 3/6 systolic murmur heard best in the left axilla Abdomen: abdomen soft, non-tender, no abnormal masses and no hepatosplenomegaly Musculoskeletal: no gait disturbance, no weakness Extremities: no edema and no cyanosis Neuro:awake, conversant, follows commands, no focal motor deficits Psych: appropriate affect and insight. Results & Data Vital Signs (Past 12 Hours) Vital Signs Temp Pulse Pulse Resp BP Pulse Ox O2 Del Method 03/16/24 07:21 36.5 C 88 17 109/78 96 Room Air 03/16/24 07:00 Room Air 03/16/24 02:30 36.6 C 80 16 119/81 95 Room Air 03/15/24 23:50 80 03/15/24 23:18 36.4 C L 84 20 112/76 92 Room Air Laboratory Results Cardiac Enzymes 03/16/24 Range/Units 07:09 AST 13 (13-39) U/L CBC 03/16/24 Range/Units 07:09 WBC 9.51 (4.8-10.8) K/ul RBC 5.01 (4.20-5.40) M/uL Hgb 13.8 (12.0-16.0) g/dl Hct 43.3 (37.0-47.0) % Plt Count 197 (130-400) K/uL Comprehensive Metabolic Panel 03/16/24 Range/Units 07:09 Sodium 141 (136-145) mmol/L Potassium 4.6 (3.5-5.1) mmol/L Chloride 105 (98-107) mmol/L Carbon Dioxide 26 (21-32) mmol/L BUN 44 H (6-23) mg/dl Creatinine 1.15 (0.6-1.2) mg/dl Glucose 113 H (70-99(Fasting)) mg/dl Calcium 10.2 (8.6-10.3) mg/dl AST 13 (13-39) U/L ALT 26 (7-52) U/L Alkaline Phosphatase 127 H (34-104) U/L Total Protein 8.3 (6.0-8.3) gm/dl Albumin 4.7 (3.4-5.0) gm/dl Intake and Output 03/15/24 03/16/24 03/16/24 22:59 06:59 14:59 Intake Total 200 / 640 Output Total 150 / 1300 650 / 1300 Balance -150 / -660 -450 / -660 Intake: Oral 200 / 640 Output: Urine 150 / 1300 650 / 1300 Other: Weight 73.4 kg Weight Measurement Method Standing Scale
--- NOTE | 2024-03-16 10:16 | Discharge Summary ---
Date of Service March 16, 2024 Admission HPI Per Admitting Provider History obtained from patient, family, and records. Medical history significant for heart murmur, bronchial asthma, hyperlipidemia, prediabetes, gout. Patient is a resident of [facility] who has been in town the last couple of weeks with her to spend holidays with local family. Patient and were to return home 03/16/2024. Patient and her got a cold 2 weeks ago before leaving [place] for the [facility]. Congestion with dry cough symptoms. No chest pain with some SOB. Denies fluid retention. Denies aspiration. Patient consulted local urgent care center 2 weeks ago. Patient prescribed prednisone, Z-Christiano, and inhaler for respiratory illness. No outpatient blood work and x-rays done. Transient improvement in symptoms. Worsening SOB especially on exertion. Denies chest pain. Patient reconsulted urgent care center today. SBP 170s, pulse rate 120s, RR 18, O2 sats 97 room air. Left lobe infiltrate and cardiomegaly on chest x-ray. Neb treatment administered at facility. Cefepime and doxycycline administered at the ER. Patient directed to ER for evaluation. 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 Admission Exam Per Admitting Provider GENERAL: Slightly anxious, episodic tachypnea during encounter SKIN: Normal color, warm HEENT: [place] palpebral conjunctivae, no ptosis, dry buccal mucosa NECK : Supple, no tenderness CHEST : Decreased breath sounds, no tenderness HEART : Tachycardic, systolic murmur ABDOMEN: Some distention, nontender EXTREMITIES : Minimal LE swelling without tenderness, no other conspicuous deformities noted NEUROLOGIC : Coherent, no facial asymmetry, no other gross focality Principal Diagnosis Severe MR resulting in Acute heart failure with preserved ejection fraction Discharge Exam Constitutional: WD/WN F in NAD HEENT: NC/AT, EOMI. Mucous membranes moist. Lungs: CTAB, mild bibasilar rales, no wheezes CV: regular, grade 3/6 systolic blowing murmur Abdomen: Soft, nontender, nondistended Extremities: no LE edema Neuro: No focal deficits Psych: Cooperative, normal mood Discharge Data Allergies Allergy/AdvReac Type Severity Reaction Status Date / Time Penicillins Allergy Unknown Verified 03/12/24 16:40 narcotics AdvReac Unknown Uncoded 03/12/24 16:40 Consultations 03/12/24 19:26 ED Decision to Admit Stat 03/12/24 20:47 Consult Cardiology Routine Ordered Studies 03/12/24 17:04 CT angio chest PE protocol Stat Findings: There is no definite sign of pulmonary embolism. There is mild pulmonary edema. There is a small area of alveolar opacity, likely due to atelectasis. There are small bilateral pleural effusions. There is no pneumothorax. There is no sign of pulmonary fibrosis or other diffuse interstitial process. No endobronchial lesion is seen There are mildly enlarged mediastinal and right hilar lymph nodes, measuring up to 1.5 cm in short axis. The thoracic aorta appears unremarkable with no sign of aneurysm or dissection. There is no pericardial effusion The visualized upper abdomen appears unremarkable. No fracture is seen. No focal osseous lesion is evident Impression: 1. No definite sign of pulmonary embolism 2. Mild pulmonary edema 3. Small bilateral pleural effusions 4. Mild lingular opacity, likely due to atelectasis. A small focus of pneumonia cannot be excluded 5. Mild mediastinal and right hilar adenopathy, nonspecific in nature Hospital Course (1) Acute diastolic heart failure due to valvular disease: (2) Acute heart failure with preserved ejection fraction: (3) Severe mitral regurgitation: (4) Severe pulmonary hypertension: (5) Mitral valve prolapse: (6) Prediabetes: Plan Patient visiting from [place] with acute symptoms of heart failure. Patient with acute heart failure due to valvular failure and pulmonary hypertension. Pneumonia/infectious process ruled out with normal procalcitonin, antibiotics were stopped Continued IV diuresis while inpt Cardiology consulted and discussed with in detail. Per cardiology * Continue metoprolol succinate 25 mg daily change IV furosemide to furosemide 40 mg by mouth daily , potassium chloride 20 meq my mouth daily. * Continue rosuvastatin 5 mg daily. * Additional evaluation to include LEXY, cardiac catheterization and expedited CT surgery evaluation for surgical intervention of mitral regurgitation indicated, however patient prefers to have this at home * Arrangements for transfer to tertiary center closest to patient by home by air ambulance did not come to fruition. * My impression is that patient clinically stable for discharge and return with her family to [place], but would recommend expedited work up for mitral valve intervention. * Family states that the closest metropolitan area from our location is [place]. * I will reach out to CT surgery and cardiology at [facility] and arrange hand off with plans for patient to drive with family to that location. Total Time Total Time Spent Total Time Spent (In Minutes): 40 Discharge Plan Discharge Items Patient Disposition: Home - Self-Care Reason For Visit: CHF Discharge Diagnosis: Severe MR resulting in Acute heart failure with preserved ejection fraction Activity: Per Instructions section Non-emergency contact: Hospitalist, Surgeon and Rolfer Call non-emergency contact if: you have any medication questions and your symptoms worsen Follow-up/Referrals: PCP,NO [Primary Care Provider] - Diet: Heart Healthy Fluids: 1500ml (6 cups) Addtl Attending Provider Instructions: Initially plan was to transfer patient to [facility] - to the care of Dr. Stuart, cardiac surgeon, for further evaluation and care of her severe mitral regurgitation/ mitral valve prolapse. After encountering transportation challenges and in detail conversation with patient, family and cardiology - plan is to discharge patient from the hospital and have her family drive her to the hospital in [facility]. Rolfer (Dr. Moncada) discussed with CT surgeon there already and will be available for any further medical questions. Pending Studies at Discharge: No Stand-Alone Forms: My [facility] [employer], Smoking Cessation Medications and DC Order Prescriptions: New metoprolol succinate 25 mg Tablet Extended Release 24 Hr 25 mg PO QAM Qty: 30 0RF potassium chloride 20 mEq Tablet,Er Particles/Crystals 20 meq PO QAM Qty: 30 0RF furosemide 40 mg tablet 40 mg PO DAILY Qty: 30 0RF Continued allopurinol 100 mg Tablet 100 mg PO QAM rosuvastatin 5 mg Tablet 5 mg PO HS cholecalciferol (vitamin D3) [Vitamin D3] 10 mcg (400 unit) Tablet 10 mcg PO DAILY Held Riesel-3 350 mg-235 mg- 90 mg-597 mg Capsule,Delayed Release(/Ec) 1 cap PO DAILY Hold Instructions: Resume on 03/22/24. until further discussed with your seismic prospecting observer helper Discharge Orders: Discharge Order (Routine); Ordered 03/16/24 Ordered By: Jorge L Hernandez Admission Data Admit Date/Time: 03/12/24 19:39 Attending Provider: Jorge L Hernandez Admit Provider: Dakotah Kim Primary Care Provider: PCP,NO Other Providers: Dakotah Kim; Kari Orr; Sajan Moncada; Martin Goldstein; Loy Vincent; Omar Garrido; Mundo Gauthier; Jeanine Epstein; Wilma Avery; Bhargavi Xiong; Kari Field; Cristobal Barclay; Easton Barrett; Suzanne Price; Era Kerr; Rosie Grimm; Dougie Fortune; Gurpreet Law; Sonam Rodriguez; Ryann Burns; True Holt
[2024-03-16 11:52] VITALS: PULSE 67
== END 2024-03-16 14:02 | disposition home or self-care (01) | DRG 293 ==
LOC: ED 15:42 → EDINP 19:39 → SUATTDRO 19:39 → 2S 03-13 00:16